=== PATIENT | female | born 1990 | race Caucasian/White ===

== ENCOUNTER 2022-10-24 21:33 | Emergency (ER) | payer MEDICAID, SELFPAY ==
[2022-10-24 21:34] VITALS: BP 103/47; PULSE 101; RESP 16; TEMP 38.1; O2SAT 98; BMI 23.0
--- NOTE | 2022-10-24 22:12 | XR_ITS ---
PROCEDURE INFORMATION: Exam: XR Chest Exam date and time: 10/24/2022 10:09 PM Age: 32 years old Clinical indication: Other: Congestion TECHNIQUE: Imaging protocol: Radiologic exam of the chest. Views: 2 views. COMPARISON: No relevant prior studies available. FINDINGS: Lungs: No lobar consolidation, pleural effusion or pulmonary edema. Pleural spaces: See Lungs finding. Heart/Mediastinum: Unremarkable. No cardiomegaly. Bones/joints: Unremarkable. IMPRESSION: No lobar consolidation, pleural effusion or pulmonary edema. Plain films are relatively insensitive for detecting any possible ground glass opacities.
[2022-10-24 22:31] LABS: Coronavirus 19, PCR Not Detected (NotDetected); Influenza B, PCR Not Detected (NotDetected)
[2022-10-24 23:37] LABS: Influenza A, PCR Detected (NotDetected)
[2022-10-25 00:21] VITALS: BP 112/70; PULSE 98; RESP 18; TEMP 37.2; O2SAT 99
--- NOTE | 2022-10-25 00:25 | HMH.EDURI ---
Discharge Plan Disposition Patient Disposition: Home, Self-Care Prescriptions Prescriptions: New benzonatate 100 mg Capsule 100 mg PO Q8H Qty: 30 0RF prednisone [prednisone] 20 mg tablet 20 mg PO BID Qty: 10 0RF oseltamivir [Tamiflu] 75 mg capsule 75 mg PO BID 5 Days Qty: 10 0RF Referrals Follow up/Referrals: Hector Jacobs MD [Emergency Provider] - See instructions Provider,MD Marlys [Primary Care Provider] - See instructions Clinical Impressions Clinical Impression: Influenza Stand Alone Forms Stand Alone Forms: Work/School Release Instructions Patient Instructions: DI for Influenza -- Adult Discharge ED Provider: Hector Jacobs URI/Sore Throat HPI General Chief Complaint: Upper Respiratory Infection Stated Complaint: body aches, bilateral hand numb, congestion, fever Time Seen by Provider: 10/25/22 00:25 Mode of Arrival: Ambulatory Source of Information: Patient and Medical Record Limitations: No Limitations Description of Symptoms (Recalled from ER Triage Doc. by RN): pt c/o dumont,cough, congestion, chills, fever, bilateral hand numbness when chilling x 2 days History of Present Illness HPI Narrative: achey with cough and congestion Complaint: fever and nasal congestion Onset (ago): day(s) Duration: intermittent Severity: moderate Context: sick contacts Associated symptoms: denies other symptoms Treatments prior to arrival: acetaminophen Related Data Previous Rx's Medication Instructions Recorded benzonatate 100 mg capsule 100 mg PO Q8H #30 caps 10/25/22 oseltamivir 75 mg capsule (Tamiflu) 75 mg PO BID 5 days #10 caps 10/25/22 prednisone 20 mg tablet 20 mg PO BID #10 tabs 10/25/22 Allergies Allergy/AdvReac Type Severity Reaction Status Date / Time No Known Allergies Allergy Verified 10/24/22 22:11 [facility] Disclaimer: The information contained in this section may have been updated after the patient was seen, as this information can be updated by other users. Social History Smoking Status: Current every day smoker alcohol intake: never current occupational status: employed Travel in the last 8 weeks: None ROS Obtained: Yes All systems reviewed & no additional complaints except as documented Physical Exam General General appearance: alert Head Head exam: normocephalic Eye Eye exam: Present PERRL and EOMI; Absent scleral icterus ENT ENT exam: Present mucous membranes moist; Absent TM's normal bilaterally Neck Neck exam: Present trachea midline Respiratory Respiratory exam: Present other (rhonchi ); Absent respiratory distress Cardiovascular Cardiovascular exam: Present regular rate Abdominal Exam Abdominal exam: Present soft Extremities Exam Extremities exam: Present full ROM Neurological Exam Neurological exam: Present alert, oriented X3 and CN II-XII intact Psychiatric Psychiatric exam: Present normal affect Skin Skin exam: Absent rash Medical Decision Making Medical Records Medical records reviewed: Yes I reviewed the patient's medical records. Gregory Inquiry Pt receiving controlled substance: No Vital Signs: 10/24/22 21:34 10/25/22 00:21 10/25/22 00:21 Temperature 100.6 F H 99 F Temperature Source Oral Pulse Rate 98 H Pulse Rate [Right] 101 H Respiratory Rate 16 18 Blood Pressure 112/70 Blood Pressure [Right Arm] 103/47 L Blood Pressure Mean [Right Arm] 65 02 Sat by Pulse Oximetry 98 Oxygen Delivery Method Room Air Room Air Lab Data Lab results reviewed: Yes I reviewed the patient's lab results. Lab Results 10/24/22 22:09: SARS-CoV-2 (PCR) Not detected, Influenza A Untype (PCR) Detected A, Influenza Type B (PCR) Not detected Orders (Tests/Meds): ORDERS Category Date Time Status Chest XR 2 view (NOT portable) [XR chest 2V] Stat Exams 10/24/22 22:12 Completed Rapid PCR Covid and Flu A/B Stat Lab 10/24/22 22:09 Completed Radiology Data #1: Image(s): Chest
== END 2022-10-25 00:32 | disposition home or self-care (01) ==
PROVIDERS: Emergency Provider Emergency Medicine
DX: J10.1 Influenza due to other identified influenza virus with other respiratory manifestations (principal)
CPT/HCPCS: 71046; 99283; C9803; U0003; U0005